=== PATIENT | female | born 1995 | race Hispanic/Latino ===

== ENCOUNTER 2018-05-11 09:52 | Inpatient (IN) | payer BC, OTHER ==
[2018-05-11] MEDS ORDERED: PROMETHAZINE 25 MG/ML VIAL IM PRN (12:55)
[2018-05-11] MEDS ORDERED: MEPERIDINE HCL 25 MG/0.5 ML IV PRN (12:55)
[2018-05-11] MEDS ORDERED: MIDAZOLAM HCL 2 MG/2 ML INJ IV PRN (12:55)
[2018-05-11] MEDS ORDERED: CARBOPROST TROME 250 MCG/ML IM PRN (12:55)
[2018-05-11] MEDS ORDERED: BUTORPHANOL 1 MG/ML INJ IV PRN (12:55)
[2018-05-11] MEDS ORDERED: Ringers Lactate 1,000 ML IV PRN (12:55)
[2018-05-11] MEDS ORDERED: METHYLERGONOVINE 0.2MG/ML AMP IM PRN (12:55)
[2018-05-11] MEDS ORDERED: OXYTOCIN/LR 20 UNIT/1,000 ML BAG IV SCH ×2 (13:00→20:00)
[2018-05-11] MEDS ORDERED: Ringers Lactate 1,000 ML IV SCH (13:00)
[2018-05-11] MEDS ORDERED: OXYTOCIN/LR 20 UNIT/1,000 ML BAG IV ONE (13:12)
[2018-05-11 13:33] LABS: RPR Titer ND
[2018-05-11 13:42] LABS: Urine Appearance CLEAR; Urine Bilirubin NEGATIVE (NEG); Urine Blood NEGATIVE (NEG); Urine Color YELLOW; Urine Glucose NEGATIVE (NEG); Urine Protein NEGATIVE (NEG); Urine Specific Gravity <=1.005 (1.005-1.030)
[2018-05-11 13:43] LABS: Urine Microscopic Reflex NO UMIC
[2018-05-11 13:51] LABS: Absolute Lymphocytes (CBC) 1.9 K/uL (0.7-4.9); Absolute Neutrophil 10.7 K/uL (1.8-8.0); Basophils % 0.4 % (0-1.3); Eosinophils % 0.3 % (0-4.4); Hematocrit 36.8 % (36.0-45.0); Lymphocytes % 13.8 % (15.3-44.8); MCH 27.9 pg (27.0-35.0); MCV 81.2 fL (80-100); MPV 9.5 fL (7.6-11.3); Monocytes % 7.4 % (3.3-12.3); RBC Red Blood Cell Count 4.53 M/uL (3.86-4.86)
[2018-05-11 14:58] VITALS: BMI 36.7
[2018-05-11] MEDS ORDERED: ROPIVACAINE HCL 100 ML IV PRN (15:07)
[2018-05-11] MEDS ORDERED: FENTANYL CITR 100 MCG/2 ML IV ONE (15:08)
[2018-05-11] MEDS ORDERED: ROPIVACAINE HCL 0.2% 20ML AMP IV ONE (15:09)
--- NOTE | 2018-05-11 16:23 | PN ---
A 22-year-old, primigravida, either 38 weeks 4 days by dates, 39 weeks 3 days by ultrasound, active l abor, now being augmented. She is 3-1/2 cm, 60 to almost 70% effaced, vertex, -1, almost 0 station. Rupture of membranes, clear fluid. She has had 1 dose of Stadol. When she reaches 5 cm, she will p robably ask for epidural anesthesia. Full admission talk again given. Anticipate delivery sometime later today. ROSALINA/ALY Voice ID: [id number] Report ID: [id number]
--- NOTE | 2018-05-11 16:23 | PREOPHP ---
Date of Admission: 05/11/2018 Addendum: It was stated, the patient was immune to Rubella. She is not immune to Rubella and will b e offered rubella immunization prior to dismissal. ROSALINA/ALY Voice ID: [id number]
--- NOTE | 2018-05-11 16:23 | PREOPHP ---
Date of Admission: 05/11/2018 This is a 22-year-old female, who is scheduled for Cytotec yesterday, but we looked good at her dates and decided, she was probably 38 and 3, instead of 39. Ultrasound though shows she is possibly 39 a nd 3. In any event, she is now in labor. She is 2-1/2 cm, 60% effaced, vertex, -1 station, contract ing every 2-3 minutes firmly, and she is uncomfortable. We will admit her. She is requesting analge sics. give her IV Stadol, IM Phenergan, Rupture of membranes, and then add Pitocin augmentation. Sh e will be requesting epidural once the labor starts progressing. Labor talk given. Anticipate ziggy marroquin sometime later today. Rh positive, immune to Rubella. Negative beta strep screen. ROSALINA/MODL Voice ID: [id number]
[2018-05-11] MEDS ORDERED: LIDOCAINE 2% INJ, 20 mL 20 ML ONE (19:02)
[2018-05-11] MEDS ORDERED: DIPHENHYDRAMINE 25 MG TAB/CAP PO PRN (19:50)
[2018-05-11] MEDS ORDERED: ACETAMINOPHEN 500 MG TAB PO PRN (19:50)
[2018-05-11] MEDS ORDERED: IBUPROFEN 200 MG TAB PO PRN (19:50)
[2018-05-11] MEDS ORDERED: BISACODYL 10 MG RECTAL SUPP RECT PRN (19:50)
[2018-05-11] MEDS ORDERED: DOCUSATE NA/SENNA CONC 1 TAB PO PRN (19:50)
[2018-05-11] MEDS ORDERED: Oxycodone HCl/Acetaminophen 1 TAB TAB PO PRN (19:50)
--- NOTE | 2018-05-11 21:20 | PN ---
The patient is now 5 cm, 90% effaced, about 0 station, persistent occiput posterior. Pelvic rocking is discussed again, but she has not been doing it. We will encourage the nurses to encourage the pat ient to do pelvic rocks. There is decreased xbel-tj-layp variability for the last 30 minutes, probab ly secondary to the narcotic the patient had earlier with acoustic stem variability returns. We have cut the epidural back from 10 maintenance dose to 8 maintenance dose as the patient can feel nothing at this point. Hopefully within next hour or so, we will see faster. Dilation was checked. The pa tient is 6, may go to 7 before shift change. ROSALINA/ALY Voice ID: [id number] Report ID: [id number]
--- NOTE | 2018-05-11 21:20 | PN ---
Ariel quite regularly and firmly every 2 minutes now. Nurse's exam says, she was 5 and we orde red the epidural. My exam shortly thereafter shows the patient at 4 cm, 70% effaced, -1 to almost 0 station. We will go ahead and let the epidural be placed. Hopefully it won't slower down. ROSALNIA/ALY Voice ID: [id number] Report ID: [id number]
[2018-05-11 21:47] LABS: RPR (Rapid Plasma Reagin) NON-REACT (NON-REACT)
--- NOTE | 2018-05-12 00:29 | PN ---
The patient is now complete, is pushing. Pushing quite effectively at this point. +1 station. Baby is rotating into an anterior position. Anticipate delivery relatively soon. ROSALINA/ALY Voice ID: [id number] Report ID: [id number]
[2018-05-12] MEDS: Oxycodone HCl/Acetaminophen 1 TAB TAB PO PRN ×3 (00:50→11:51)
--- NOTE | 2018-05-12 03:17 | OP ---
Surgeon: Antoni Dick MD A 22-year-old primigravida, 38 weeks and 4 days by ultrasound, 39 weeks and 3 days DICTATION ENDS HERE/CANCELLED DICTATION ROSALINA/ALY Voice ID: [id number] Report ID: [id number]
--- NOTE | 2018-05-12 03:17 | OP ---
Surgeon: Antoni Dick MD [facility] Course: Kathie Posada is 22-year-old primigravida, 38 weeks 4 days by dates, 39 weeks 3 da ys by ultrasound, came in in active labor. Stadol IV, Phenergan IM initially. At approximately 4 cm . Requested to receive epidural anesthesia. Progressed well to complete within a reasonably short p eriod of time. Second stage of approximately 20-25 minutes. Spontaneous vaginal delivery of an callum mated 6-1/2 to 7-pound male , Apgars 9 and 9. Midline second-degree laceration simulating epis iotomy and repaired with 2-0 chromic. Local infiltration for repair. Schultze delivery of the place nta which was inspected and noted to be quite large in comparison to the baby but otherwise normal. Heavily calcified but intact. Estimated blood loss 350 cc. The patient is Rh positive. Nonimmune t o Rubella. This has been discussed with the patient and she will receive rubella immunization during her stay, beta-strep negative. Final Diagnosis: Term intrauterine 39 weeks 3 days, best estimate, vaginal delivery, epidu ral anesthesia. ROSALINA/ALY Voice ID: [id number] Report ID: [id number]
--- NOTE | 2018-05-12 07:42 | DS ---
Hospital Course: A 22-year-old primigravida, 39 weeks 3 days, best estimate, came in active labor. Subsequently delivered a 7 pound male . Apgars 9 and 9. Second-degree midline laceration simu lating episiotomy, repaired with 2-0 chromic. Schultze delivery of the placenta, which was inspected and noted be larger than average for a 7 pound baby, but otherwise normal. Estimated blood loss 350 cc. Rh positive. Nonimmune to Rubella. Beta strep negative. Epidural anesthesia. , af ebrile, ambulating, voiding. Lochia is normal. No complaints offered. Will be dismissed tomorrow m bishnu. She will report back to my office in 6 weeks. She will report any temperature elevation of 100 degrees or greater, severe pain, heavy bleeding, or any other type of abnormalities. Dismissed w ith tramadol, although she knows this goes through the breast milk and she may choose to take Motrin instead. She has said that she wants to be immunized against rubella, and Tdap will be given also be fore she is dismissed. Full instructions given. We will go over again tomorrow. ROSALINA/ALY Voice ID: [id number] Report ID: [id number]
[2018-05-13] MEDS ORDERED: Tdap (Diph,Pertuss(Acell),Tet Vac) 0.5 ML SYR IMVAC ONE ×2 (06:57→07:06)
[2018-05-13] MEDS ORDERED: MEASLES,MUMPS,RUBELLA VAC 0.5ML SQVAC ONE ×2 (06:58→07:05)
[2018-05-13 07:41] VITALS: BP 137/84; TEMP 97.5
[2018-05-14 03:13] LABS: HBsAG Nonreactive (Nonreactive)
--- NOTE | 2018-05-14 10:56 | PN ---
The patient is doing well today and overall dismissal summaries again. She has no real questions. S he will call my office tomorrow for followup in 6 weeks. ROSALINA/ALY Voice ID: [id number] Report ID: [id number]
== END 2018-05-13 11:20 | disposition home or self-care (01) | DRG 775 ==
LOC: L&D 09:52 → 2ND-WC 12:44
PROVIDERS: ADMIT Specialist; ATTEND Specialist
PROC: 10E0XZZ Delivery of Products of Conception, External Approach (ICD-10-PCS; principal; 2018-05-11)
PROC: 0KQM0ZZ Repair Perineum Muscle, Open Approach (ICD-10-PCS; 2018-05-11)
PROC: 10907ZC Drainage of Amniotic Fluid, Therapeutic from Products of Conception, Via Natural or Artificial Opening (ICD-10-PCS; 2018-05-11)
DX: O64.0XX0 Obstructed labor due to incomplete rotation of fetal head, not applicable or unspecified (principal); O70.1 Second degree perineal laceration during delivery; Z3A.39 39 weeks gestation of pregnancy; Z37.0 Single live birth; Z23 Encounter for immunization
CPT/HCPCS: 36415; 81003; 85025; 86592; 86901; 87340; 90707; 90715; J0595; J2210; J2590; J2795; J3010

== ENCOUNTER 2021-12-28 07:34 | Inpatient (IN) | payer BC ==
--- OUTSIDE RECORDS SUMMARY | 2021-12-28 07:36 | XMS REPORT | Continuity of Care Document ---
:[address] [facility] t Address [address] [place] [address] Dr. oCx [address] [place] [id number] Care Team Providers Name Role Phone Unavailable Unavailable Unavailable Problems This patient has no known problems. Allergies, Adverse Reactions, Alerts This patient has no known allergies or adverse reactions. Medications This patient has no known medications. Procedures This patient has no known procedures. Results This patient has no known results.
[2021-12-28] MEDS ORDERED: Ringers Lactate 1,000 ML IV PRN (07:38)
[2021-12-28] MEDS ORDERED: BUTORPHANOL 1 MG/ML INJ IV PRN (07:38)
[2021-12-28] MEDS ORDERED: PROMETHAZINE INJ 25 MG/ML AMP IM PRN (07:38)
[2021-12-28] MEDS ORDERED: METHYLERGONOVINE 0.2MG/ML AMP IM PRN (07:38)
[2021-12-28] MEDS ORDERED: Ringers Lactate 1,000 ML IV SCH (08:00)
[2021-12-28] MEDS ORDERED: OXYTOCIN/LR 20 UNIT/1,000 ML BAG IV SCH ×2 (08:00→13:00)
[2021-12-28 08:24] LABS: Urine Appearance CLOUDY (Clear); Urine Bilirubin NEGATIVE (Negative); Urine Blood NEGATIVE (Negative); Urine Color YELLOW (Yellow); Urine Glucose NEGATIVE (Negative); Urine Protein NEGATIVE (Negative); Urine pH 6.5 (5.0-7.0)
[2021-12-28 08:25] LABS: Urine Microscopic Reflex ORDER UMIC
[2021-12-28 08:26] LABS: Absolute Lymphocytes (CBC) 2.5 K/uL (0.7-4.9); Hematocrit 35.8 % (36.0-45.0); Lymphocytes % 20.2 % (15.3-44.8); MPV 9.8 fL (7.6-11.3); RBC Red Blood Cell Count 4.41 M/uL (3.86-4.86)
[2021-12-28] MEDS ORDERED: 0.2% ROPIVACAINE (200 MG/100 ML) BAG EP ONE (08:43)
[2021-12-28] MEDS ORDERED: ROPIVACAINE HCL 0.2% 20ML AMP EP ONE (08:44)
[2021-12-28] MEDS ORDERED: FENTANYL CITR 100 MCG/2 ML IV ONE (08:44)
[2021-12-28 08:50] VITALS: BMI 38.9
[2021-12-28 09:27] LABS: Urine Amorphous Sediment 1+ /HPF (NONE SEEN); Urine Bacteria >50 /HPF (<20); Urine Mucus 2+ /HPF (NONE SEEN); Urine RBC <5 /HPF (NONE SEEN)
[2021-12-28] MEDS ORDERED: LIDOCAINE 1% MPF 30 ML VIAL SQ ONE (12:00)
[2021-12-28] MEDS ORDERED: LIDOCAINE 1% MPF 30 ML VIAL ONE (12:07)
[2021-12-28] MEDS ORDERED: BISACODYL 10 MG RECTAL SUPP PR PRN (12:15)
[2021-12-28] MEDS ORDERED: DIPHENHYDRAMINE 25 MG TAB/CAP PO PRN (12:15)
[2021-12-28] MEDS ORDERED: ACETAMINOPHEN 500 MG TAB PO PRN (12:15)
[2021-12-28] MEDS ORDERED: DOCUSATE NA/SENNA CONC 1 TAB PO PRN (12:15)
[2021-12-28] MEDS ORDERED: Oxycodone HCl/Acetaminophen 1 TAB TAB PO PRN ×2 (12:15)
--- NOTE | 2021-12-28 12:33 | OP ---
Surgeon: Antoni Dick MD Procedure In Detail: A 26-year-old female, 2, para 1, 39 weeks 6 days, scheduled for Cytotec this afternoon, came in active labor. Received Stadol initially, then epidural anesthesia. Second stage of approximately 30-45 minutes. Spontaneous vaginal delivery of an 8-pound 1-ounce male infant , rotated from posterior to anterior and then delivered. Apgars 9 and 9. Loose nuchal cord x1. Sma ll second-degree laceration, repaired with 2-0 chromic, local infiltration. Epidural was wearing off at that point. Schultze delivery of the placenta, which was inspected and noted to be intact and no rmal. Less than 300 cc blood loss. Rh positive, immune to rubella, negative strep, negative COVID. Final Diagnoses: Term intrauterine at 39 weeks 6 days, spontaneous labor, vaginal delivery , epidural anesthesia. ROSALINA/ALY Voice ID: [id number] Report ID: [id number]
[2021-12-28] MEDS ORDERED: Ringers Lactate 1,000 ML IV ONE (17:50)
[2021-12-28] MEDS: IBUPROFEN 200 MG TAB PO PRN (19:49)
[2021-12-29 00:50] LABS: RPR (Rapid Plasma Reagin) NON-REACT (NON-REACT)
[2021-12-29] MEDS ORDERED: TETANUS & DIPHTHERIA TOX,ADULT 0.5 ML VIAL IMVAC ONE (09:40)
[2021-12-29] MEDS ORDERED: TDAP (DIPHTH,PERTUSS(ACELL),TET VAC) 0.5 ML VIAL IMVAC ONE (10:00)
[2021-12-29] MEDS: IBUPROFEN 200 MG TAB PO PRN (10:58)
--- NOTE | 2021-12-29 11:51 | DS ---
Hospital Course: A 26-year-old, 2, para 1, 39 weeks 6 days, was scheduled for Cytotec insert ion that afternoon. Came in that morning with early labor, received Stadol 1 mg IV followed by epidu ral anesthesia. Second stage of about 30-45 minutes. Spontaneous vaginal delivery of an 8-pound 1-o unce male , Apgars 9 and 9. Loose nuchal cord x1. Epidural anesthesia. Second-degree episiot lorenza repaired with 2-0 chromic. Schultze delivery of the placenta, which was inspected and noted to b e intact and normal. Baby was persistent occiput posterior until the last minute where it rotated an d then delivered. Very small episiotomy, first degree was produced and a second-degree extension occ urred. Still though midline. Routine repair. Estimated blood loss 300 cc or less. Strep negative, COVID negative, Rh positive. ; afebrile, ambulating, voiding. Lochia is normal. Will be dismissed later today to report back to my office in 6 weeks for followup to report any temperature elevation of 100 degrees or greater, severe pain, heavy bleeding, or any other type of abnormalities. We will get her Tdap shot before she is dismissed. Full dismissal instructions given. Final Diagnoses: Term intrauterine at 39 weeks 6 days, spontaneous labor, vaginal delivery , epidural anesthesia. Tdap offered. ROSALINA/ALY Voice ID: [id number] Report ID: [id number]
[2021-12-29] MEDS ORDERED: IBUPROFEN 600 MG TAB PO PRN (12:51)
[2021-12-29 15:13] VITALS: BP 117/67; TEMP 97.8
[2021-12-31 11:54] LABS: HBsAG Nonreactive (Nonreactive)
--- NOTE | 2022-01-09 08:46 | PREOPHP ---
Date of Admission: 12/28/2021 History Of Present Illness: A 26-year-old 2, para 1, 39 weeks 6 days, scheduled for Cytotec in the afternoon of admission, came in active labor. Family History: Noncontributory. Past Medical History: Noncontributory. Allergies: NO ALLERGIES. Past Surgical History: No previous surgeries of any significance. Physical Examination: HEENT: Clear. Pupils equal, round, reactive to light and accommodation. Conjunctivae well perfused. No oral, lingual, or buccal lesions. Chest: Lungs clear. Heart: Without murmurs, thrills, heaves, or rubs. Breasts: Not examined. Abdomen: Term size. Extrem ities: Clear without edema, cyanosis, or clubbing. Admitted for stabilization and delivery. Anticipate epidural anesthesia request. Full admission saba k given. ROSALINA/ALY Voice ID: [id number]
== END 2021-12-29 14:30 | disposition home or self-care (01) | DRG 807 ==
LOC: 2ND-WC 07:34
PROVIDERS: ADMIT Specialist; ATTEND Specialist
PROC: 0KQM0ZZ Repair Perineum Muscle, Open Approach (ICD-10-PCS; principal; 2021-12-28)
PROC: 10E0XZZ Delivery of Products of Conception, External Approach (ICD-10-PCS; 2021-12-28)
PROC: 10907ZC Drainage of Amniotic Fluid, Therapeutic from Products of Conception, Via Natural or Artificial Opening (ICD-10-PCS; 2021-12-28)
DX: O70.1 Second degree perineal laceration during delivery (principal); Z37.0 Single live birth; Z3A.39 39 weeks gestation of pregnancy; Z20.822 Contact with and (suspected) exposure to COVID-19; Z23 Encounter for immunization
CPT/HCPCS: 36415; 81003; 81015; 85025; 86592; 86850; 86900; 86901; 87086; 87088; 87340; 99218; J2210; J2590; J2795; J3010; J7120; U0003